=== PATIENT | male | born 1955 | race Caucasian/White ===

== ENCOUNTER 2018-01-23 13:54 | Emergency (ER) | payer BC, SELFPAY ==
[2018-01-23 14:20] VITALS: BP 210/97; PULSE 68; RESP 16; TEMP 36.6; O2SAT 97
--- NOTE | 2018-01-23 14:40 | DI.REPORT_ITS ---
SYMPTOMS/DIAGNOSIS: POSTERIOR THIGH PAIN AFTER TRAUMA AND IMMOBILIZATION RIGHT LOWER EXTREMITY ULTRASOUND: The femoral and popliteal veins as well as calf veins are freely compressible. No thrombus is visible. The doppler venous wave form augments normally. IMPRESSION: Negative right lower extremity ultrasound. No evidence of DVT.
--- NOTE | 2018-01-23 14:48 | ED.GENADUL_ITS ---
Disposition Clinical Impression: Muscle spasm, Sciatica Disposition: HOME Condition: Fair Instructions: Sciatica (ED), Muscle Spasm (ED) Additional Instructions: Heat or ice to affected areas. Encourage rest, ice, elevation of the right knee. Tylenol and/or ibuprofen as needed for discomfort. Ultrasound was normal today, no evidence of blood clot. You may try topical patches such as Salonpas or Lidoderm patches over right sacroiliac joint to help with discomfort. Gentle stretching and frequent ambulation as discussed. If you develop weakness in your lower extremities, fevers/chills, change in sensation, change in bowel or bladder habits or other new/worsening symptoms please seek care urgently once again. Continue to monitor your blood pressure at home, discuss this further with primary care. Referrals: Primary Care Provider [Outside] Medical Decision Making - Medical Decision Making Patient presents with chief complaint of RLE pain. Pain is primarily posterior running down length of RLE. Worse with ambulation. Patient has long standing right knee pain. He had injry to RLE and knee a few days ago while hiking. Pain in knee has since resolved. Knee exam is normal. Full ROM, no effusion. No ligamentous laxity. No joint line tenderness. Calf is soft, no tenderness with palpation. Pain is elicited with palpation over posterior thigh but this seems minimal. No swelling, deformity or tension. 2+ distal pulses. Sensation intact. Patient ambulating well. No saddle paresthesias. He is concerned for DVT. PE is reassuring, not suggestive of DVT. However, given his srecent trauma followed by few days of being sedentary, I am concerned that this remains a risk. Will obtain US to evaluate. Efraín has palpable muscle spasm near right SI joing. HE has discomfort wiht this. Reports he has had radiating pain before but that it has been several years, most likely diagnosis is consistent with sciatica. Declines analgesics as this franky. We were contacted by radiolgoist who advises that no acute thrombus is visualized. Discussed findings with patient. We discussed that PE findings and history is most consistent with sciatica. Given stretching techniques. Encouraged frequent ambulation. Discussed topical options to help with discomfort as well as antiinflammatories. Advised f/u with PCP. Encouraged hydration. Discussed massage techniques. Discussed new/worsening symptoms and when to seek care urgently once again. All of his questions and concerns were addressed, he is in agreement with this plan. History of Present Illness - General Chief complaint: Orthopedic Stated complaint: KNEE PAIN Time Seen by Provider: 01/23/18 14:17 Source: patient, RN notes reviewed Mode of arrival: ambulatory Limitations: no limitations - History of Present Illness Initial comments: Patient is 62-year-old male presenting today with chief complaint right lower extremity pain. Patient reports that he has had long-standing discomfort in the right knee. Reports that he is status post arthroscopy. He reports is been several years since surgery that is continued to have some discomfort particularly in the lateral aspect. States that 4 days ago, while hiking, he missed stepped and twisted his right knee. He still reports that he subsequently fell. Reports that initially he was having pain primarily in the knee. He has been resting, icing, elevating. States that yesterday the pain had nearly completely subsided. Reports that this morning he again felt quite well. However, after ambulating at the grocery store he reports that the pain reoccurred. Pain is now primarily along the posterior aspect of the thigh and calf. Is endorsing some tingling along the lateral aspect of the foot. States that he has had pain like this historically that is been several years since last episode of discomfort such as this. He denies any fevers or chills. Denies other injury the time the incident. Does report that he also has chronic discomfort in the back which can radiate down the posterior aspect of the leg but again, it has been several years since flared up. - Related Data Unknown [No Known Home Meds] 01/23/18 Allergies Allergy/AdvReac Type Severity Reaction Status Date / Time No Known Allergies Allergy Unverified 01/23/18 14:24 Review of Systems Constitutional: no symptoms reported. denies: chills, fever Respiratory: no symptoms reported. denies: cough, shortness of breath Cardiovascular: denies: chest pain, palpitations Musculoskeletal: as per HPI Skin: denies: rash, lesions, change in color Neurological: as per HPI. denies: abnormal gait Past Medical History - Past Medical History Medical history: no medical history Surgical history: no surgical history General Exam - General Limitations: no limitations General appearance: alert, in no apparent distress - Eye Eye exam: Present: normal apperance - Respiratory Respiratory exam: Present: normal lung sounds bilaterally. Absent: respiratory distress - Cardiovascular Cardiovascular Exam: Present: regular rate, normal rhythm, normal heart sounds - Rectal Rectal exam: Present: deferred - Extremities Exam Extremities exam: Present: normal inspection (Exam the patient's right lower extremity is significant for limited range of motion of the right knee. He is able to flex to approximately 60 . Patient reports that this is baseline for him that he has had limited flexion for quite some time. No effusion is palpable. No discoloration of the skin. Calf is soft and nontender. He is expressing discomfort with palpation of the posterior thigh. No swelling or discoloration noted in this area. He has 2+ distal pulses. Ligamentously intact knee with no varus or valgus laxity. Nicholas exam normal. No joint line tenderness.), tenderness, normal capillary refill. Absent: full ROM, pedal edema, joint swelling, calf tenderness - Back Exam Back exam: Present: tenderness, muscle spasm (Palpable muscle spasm. The right SI joint). Absent: normal inspection - Neurological Exam Neurological exam: Present: alert, normal gait. Absent: motor sensory deficit ( No saddle paresthesias) - Psychiatric Psychiatric exam: Present: normal affect, normal mood - Skin Skin exam: Present: warm, dry, intact, normal color Course Vital Signs - 24 hr 01/23/18 14:20 Temperature 36.6 C Pulse 68 Respiratory 16 Rate Blood Pressure 210/97 Pulse Oximetry 97
[2018-01-23 16:00] VITALS: BP 182/108; PULSE 71; RESP 16; TEMP 36.6; O2SAT 97
== END 2018-01-23 16:02 | disposition home or self-care (01) ==
PROVIDERS: Emergency Provider Student in an Organized Health Care Education/Training Program
DX: M62.838 Other muscle spasm (principal); M54.31 Sciatica, right side
CPT/HCPCS: 99284; 93971; 99282

== ENCOUNTER 2024-12-03 18:08 | Outpatient (REF) | payer MEDICARE, SELFPAY ==
[2024-12-03 20:56] LABS: Abs Immature Grans 0.02 10^3/uL (0.0-0.06); Absolute Basophil Count 0.06 10^3/uL (0.0-0.2); Absolute Eosinophil Count 0.14 10^3/uL (0.0-0.7); Absolute Monocyte Count 0.45 10^3/uL (0.1-0.8); Absolute Neutrophil Count 3.98 10^3/uL (1.2-6.7); Basophils % 0.9 %; Eosinophils % 2.1 %; HCT 51.3 % (40.0-50.0); Immature Grans % 0.3 %; MCH 29.7 pg (27.0-33.0); MCHC 33.1 % (32.0-36.0); MCV 90 fL (80-95); MPV 11.7 fL (8.0-11.0); Monocytes % 6.9 %; Neutrophils % 60.8 %; Platelet Count 291 10^3/uL (130-400); RBC 5.73 10^6/uL (4.36-5.78); RDW 13.2 % (11.8-14.1); RDW-SD 43.2 fL; WBC 6.55 10^3/uL (4.4-10.8)
[2024-12-03 21:09] LABS: ALT 44 U/L (16-63); AST 16 U/L (15-37); Albumin 4.3 g/dL (3.4-5.0); Alkaline Phosphatase 89 U/L (46-116); Anion Gap 7.6 mmol/L (3-11); BUN 14 mg/dL (7-18); Bilirubin, Total 0.6 mg/dL (0.2-1.0); CO2 29.4 mmol/L (21.0-32.0); CREATININE 1.1 mg/dL (0.70-1.30); Calcium 9.9 mg/dL (8.5-10.1); Chloride 102 mmol/L (98-107); Estimated GFR 72.67 (mL/min/1.73m2); Glucose 169 mg/dL (74-106); LDL CHOLESTEROL 168 mg/dL (<100); Potassium 4.8 mmol/L (3.5-5.1); Sodium 139 mmol/L (136-145); Total Protein 7.6 g/dL (6.4-8.2)
[2024-12-03 21:19] LABS: Hemoglobin A1C 9.2 % (<5.7)
[2024-12-03 21:38] LABS: COMMENT (LAB VIEW ONLY) 235.09 mg/dL
== END 2024-12-03 18:09 | disposition home or self-care (01) ==
LOC: NCHCN 18:08
PROVIDERS: Visit Provider Family Medicine
DX: E11.9 Type 2 diabetes mellitus without complications (principal); E78.5 Hyperlipidemia, unspecified; I10 Essential (primary) hypertension
CPT/HCPCS: 80053; 83721; 82043; 82570; 83036; 85025

== ENCOUNTER → 2025-02-13 08:52 | Outpatient (BNVA) | payer MEDICARE, SELFPAY | PROVIDERS: PCP Family Medicine; Visit Provider Physical Therapy Assistant | DX: Z12.11 Encounter for screening for malignant neoplasm of colon (principal); I10 Essential (primary) hypertension | CPT/HCPCS: S0285 ==

== ENCOUNTER 2025-02-28 09:37 | Day surgery (SDC) | payer MEDICARE, OTHER, SELFPAY ==
[2025-02-28 10:11] VITALS: BP 131/91; PULSE 84; RESP 16; TEMP 36.3; O2SAT 93
[2025-02-28] MEDS: Lactated Ringers 1,000 ML 80 ML IV (10:27)
--- NOTE | 2025-02-28 10:49 | W.ANESPRE ---
General Info Date of Service Date Performed: 02/28/25 Height: 5 ft 6 in Weight: 86.5 kg Body Mass Index (BMI): 30.7 Surgical Procedure: Operation Date: 02/28/25 12:05 Proposed Procedure Side Surgeon shirley Stewart MD Meds Allergies and Home Medications Allergies Allergy/AdvReac Type Severity Reaction Status Date / Time No Known Allergies Allergy Verified 02/28/25 10:07 Home Medication ?Medication ?Instructions ?Recorded aspirin 81 mg tablet 81 mg PO DAILY 02/13/25 bisacodyl 5 mg tablet,delayed 5 mg PO ONCE #4 tabs 02/13/25 release (Dulcolax (bisacodyl)) lisinopril 30 mg tablet 30 mg PO DAILY 02/13/25 metformin 500 mg tablet 500 mg PO BID 02/13/25 polyethylene glycol 3350 17 17 g PO ONCE #238 grams 02/13/25 gram/dose oral powder simvastatin 20 mg tablet 40 mg PO DAILY 02/13/25 L.acidophil,salivari-Bifido 1 cap PO DAILY 02/28/25 bifidum-Strep thermoph 175 mg capsule (Acidophilus Probiotic Blend) multivitamin 1 tab PO DAILY 02/28/25 Current Visit Medications: Current Medications Generic Name Dose Route Start Last Admin Trade Name Freq PRN Reason Stop Dose Admin Ringer's Solution 1,000 mls @ 80 mls/hr 02/28/25 06:00 02/28/25 10:27 IV 02/28/25 23:59 80 mls/hr INFUSION MICHAEL Administration IV Miscellaneous Supplies 1 each 02/28/25 06:00 Iv Access IV 02/28/25 23:59 DIRECTED MICHAEL Sodium Biphosphate/Sodium Phosphate 133 - 266 ml 02/28/25 06:00 Na Phosphate Enema-Adult 133 Ml Btl NC 02/28/25 23:59 PRN PRN Sodium Chloride 0 ml 02/28/25 06:00 Normal Saline Flush 10 Ml Syr IV 02/28/25 23:59 PRN PRN Sodium Chloride 0 ml 02/28/25 06:00 Normal Saline 10 Ml Vial IJ 02/28/25 23:59 DIRECTED PRN Sterile Water 0 ml 02/28/25 06:00 Water,Injection,Sterile 10 Ml Vial IJ 02/28/25 23:59 DIRECTED PRN [facility] Medical History Medical History (Updated 02/28/25 @ 10:53 by Lashaun Stewart MD) Diverticulosis of colon Pain in left hip Ureteric stone Steatosis, liver Hyperlipidemia Essential hypertension Diabetes mellitus, type II Surgical History Surgical History H/O hemorrhoidectomy S/P ureteral stent placement Tobacco Smoking/Tobacco Use Status: Never Passive smoking exposure: No Alcohol Alcohol Intake: current Alcohol intake frequency: a few times a month Substance Use Substance use: Never Substance use type: does not use Vital Signs and Lab Results Vital Signs Most Recent Vital Signs in EMR: Most Recent Vital Signs Temp Pulse Resp BP Pulse Ox 36.3 C L 84 16 131/91 H 93 02/28/25 10:11 02/28/25 10:11 02/28/25 10:11 02/28/25 10:11 02/28/25 10:11 Point of Care Results Point of Care Results: Finger Stick Blood Glucose 156 02/28/25 10:19 Anesthesia Assessment and Plan Anesthesia History Personal History: No History of Anesthesia Complications Family History: No Family History of Anesthesia Complications Exercise Tolerance Exercise Tolerance: Metabolic Equivalents>4 Pertinent Negatives Pertinent Negatives: No Symptoms of GERD Cardiac & Pulmonary Exam Cardiac Exam: Normal S1/S2 Heart Sounds Pulmonary Exam: Clear Bilateral Breath Sounds Implantable Cardiac Device Does patient have a Pacemaker or an ICD?: No Airway Exam Known Difficult Airway: No Mallampati Class: 2 Mouth Opening: Normal (> 3cm) Thyromental Distance: Less than 3 cm Neck Range of Motion: Full ROM Neck Circumference: Normal Teeth Condition: Normal Dentition ASA Classification ASA Score: ASA 2 Emergency Case?: No NPO Status NPO Status: NPO Clears >2 hours, Solids >8 hours Anesthesia Plan Resuscitation Status: Full Code Anesthesia Technique: General Anesthesia Airway Planned: Natural Airway Pain Management: Surgeon and patient request nerve block Monitors Used: Standard Monitors
--- NOTE | 2025-02-28 10:52 | W.PM.DSUDISC ---
Date of service: 02/28/25 Discharge Plan Disposition Patient Disposition: Home Condition: Stable Discharge Details Attending Provider: Lashaun Stewart Primary Care Provider: Cuba Gutierrez Recommendations for Follow Up Recommended tests to be ordered by follow up provider: Normal colonoscopy. Next screening colonoscopy will be due in 10 years. Home Meds and New Rx's Prescriptions: Continued lisinopril 30 mg tablet 30 mg PO DAILY simvastatin 20 mg tablet 40 mg PO DAILY metformin 500 mg tablet 500 mg PO BID aspirin 81 mg tablet 81 mg PO DAILY multivitamin Tablet 1 tab PO DAILY L.acidoph,saliva-B.bif-S.therm [Acidophilus Probiotic Blend] 175 mg capsule 1 cap PO DAILY Discontinued bisacodyl [Dulcolax (bisacodyl)] 5 mg tablet,delayed release (DR/EC) 5 mg PO ONCE Qty: 4 0RF Rx Instructions: Take per colonoscopy instructions provided by ordering providers office polyethylene glycol 3350 17 gram/dose powder 17 g PO ONCE Qty: 238 0RF Rx Instructions: Take per colonoscopy instructions provided by ordering providers office Discharge Instructions Additional Instructions: Colonoscopy today was normal! Zero polyps. Next screening colonoscopy will be due in 10 years. Diverticulosis of the sigmoid colon noted, no diverticulitis (infection) present. Take a daily fiber supplement and eat a high fiber diet to prevent problems and progression of diverticulosis. Stand Alone Forms: Anesthesia Discharge Inst., Colonoscopy Post Instructions, Giuliana Montanez ([facility]) Activity:: Activity as Tolerated Diet:: As Tolerated Discharge Orders Discharge Orders: Discharge Order (Routine); Ordered 02/28/25 Ordered By: Lashaun Stewart DS: Diagnosis Discharge Diagnosis (1) Screening for colorectal cancer: Status: Acute
[2025-02-28 10:53] VITALS: BMI 30.7
--- NOTE | 2025-02-28 10:54 | W.COLOREPORT ---
Date of service: 02/28/25 Time of Service: 12:10 Colonoscopy Report Date of procedure: 02/28/25 Pre-op diagnosis general: Screening for colorectal cancer Post-op diagnosis procedure note: same Procedure: Colonoscopy Surgeon: Lashaun Stewart Anesthesia Type: General:No Airway Estimated blood loss (mL): 0 Pathology: none sent Complications: None Indications: screening for colorectal cancer Prep: Miralax/Dulcolax Procedure Description: Informed consent was obtained and the patient was taken to the procedure area. The patient was placed in left lateral decubitus position on the procedure table. Timeout was performed. Anesthesia was induced. A lubricated colonoscope was inserted through the anus and passed to the cecum. The cecum was identified by the ileocecal valve and the appendiceal orifice. The scope was then slowly withdrawn and the colonic and rectal mucosa examined. There are no colon or rectal mass lesions, polyps, AVMs. There is no inflammatory change. Moderate sigmoid diverticulosis was seen. The scope was retroflexed in the anorectal junction examined. Uncomplicated internal hemorrhoids present. Assessment and plan: Normal colonoscopy. Next screening colonoscopy will be due in 10 years.
[2025-02-28 11:58] VITALS: BP 109/80; PULSE 77; RESP 16; TEMP 36.3; O2SAT 100
[2025-02-28 12:28] VITALS: BP 123/96; PULSE 68; RESP 16; TEMP 36.2; O2SAT 96
--- NOTE | 2025-02-28 12:29 | W.ANESPOSTOP ---
Postoperative Evaluation Date, Time and Location Date Performed: 02/28/25 Time Performed: 12:08 Patient Location: Day Surgery Unit Vital Signs Most Recent Imported Vital Signs: Most Recent Vital Signs Temp Pulse Resp BP Pulse Ox 36.3 C L 77 16 109/80 100 02/28/25 11:58 02/28/25 11:58 02/28/25 11:58 02/28/25 11:58 02/28/25 11:58 Pain Score Most Recent Pain Score: Most Recent Pain Score Pain Level 0 02/28/25 10:11 Assessment Mental Status: Awake (Alert & Oriented to Patient Baseline) Airway and Respiratory Function: Patent airway with normal (patient baseline) respiratory exam Cardiovascular Function: Hemodynamically Stable Hydration Status: Adequately Hydrated Nausea & Vomiting: No Nausea or Vomiting Pain: Pt. Denies Any Pain Peripheral Nerve Block: Patient did not receive a nerve block
== END 2025-02-28 12:44 | disposition home or self-care (01) ==
LOC: SUR 09:38
PROVIDERS: PCP Family Medicine; Visit Provider Surgery
PROC: 0DJD8ZZ Inspection of Lower Intestinal Tract, Via Natural or Artificial Opening Endoscopic (ICD-10-PCS; CPT 45378; principal; 2025-02-28 12:00)
DX: Z12.11 Encounter for screening for malignant neoplasm of colon (principal); E11.9 Type 2 diabetes mellitus without complications; I10 Essential (primary) hypertension; K57.30 Diverticulosis of large intestine without perforation or abscess without bleeding
CPT/HCPCS: G0121; J2704

== ENCOUNTER 2025-04-11 04:27 | Emergency (ER) | payer MEDICARE, OTHER, SELFPAY ==
[2025-04-11 04:30] VITALS: BP 190/95; PULSE 80; RESP 18; TEMP 36.4; O2SAT 96
--- NOTE | 2025-04-11 04:36 | ED.GENADUL_ITS ---
Discharge Plan Disposition Patient Disposition: Home Condition: Good Discharge Details Clinical Impression: Lateral pain of left hip Primary Care Provider: Cuba Gutierrez ED Provider: Khari Butler Home Meds and New Rx's Prescriptions: New lidocaine 5 % adhesive patch,medicated 1 patch topical DAILY Qty: 15 0RF Rx Instructions: leave on most painful area for up to 12 hrs ibuprofen 600 mg tablet 600 mg PO TID PRN (Reason: pain) Qty: 15 0RF Continued lisinopril 30 mg tablet 30 mg PO DAILY simvastatin 20 mg tablet 40 mg PO DAILY metformin 500 mg tablet 1,000 mg PO BID aspirin 81 mg tablet 81 mg PO DAILY multivitamin Tablet 1 tab PO DAILY L.acidoph,saliva-B.bif-S.therm [Acidophilus Probiotic Blend] 175 mg capsule 1 cap PO DAILY Discharge Instructions Instructions: Leg Pain (ED) Additional Instructions: You were seen for left buttock/lateral hip pain that seems muscular in nature. X-rays show significant arthritis but no fracture. Prescriptions for lidocaine patches and ibuprofen have been sent to pharmacy. Follow up with PCP next week. Return to ED for severe worsening pain, fever, numbness or weakness, other concerns. Stand Alone Forms: Portal Information Referrals: Cuba Gutierrez MD [Primary Care Provider, Medicine] HPI General Mode of arrival: wheelchair . Date/Time Provider Initiated Documentation: 04/11/25 04:29 . Limitations to Documentation: no limitations . Information obtained by: patient and RN notes reviewed . HPI Narrative: Patient presents to ED with left buttock and hip pain that began on Tuesday after doing some lifting and moving. Denies any fall or direct trauma. Pain has become increasingly worse to the point where it is difficult to ambulate. He has tried Tylenol, Alever, cold compresses. It doesn't feel to bad if he is sitting but standing and walking bothers a lot. Pain is in buttock and radiates around to the side and down the thigh. No neuro changes. No back pain. Related Data Home Medications Medication Instructions Recorded Confirmed aspirin 81 mg tablet 81 mg PO DAILY 02/13/2511/28 lisinopril 30 mg tablet 30 mg PO DAILY 02/13/2511/28 metformin 500 mg tablet 1,000 mg PO BID 02/13/2511/28 simvastatin 20 mg tablet 40 mg PO DAILY 02/13/2511/28 L.acidophil,salivari-Bifido 1 cap PO DAILY 02/28/25 bifidum-Strep thermoph 175 mg capsule (Acidophilus Probiotic Blend) multivitamin 1 tab PO DAILY 02/28/2511/28 ibuprofen 600 mg tablet 600 mg PO TID PRN pain #15 t abs 04/11/25 lidocaine 5 % topical patch 1 patch topical DAILY #15 ea 04/11/25 Previous Rx's Medication Instructions Recorded ibuprofen 600 mg tablet 600 mg PO TID PRN pain #15 t abs 04/11/25 lidocaine 5 % topical patch 1 patch topical DAILY #15 ea 04/11/25 Allergies Allergy/AdvReac Type Severity Reaction Status Date / Time No Known Allergies Allergy Verified 04/11/25 04:33 General Stated Complaint: Orthopedic SATISH: 3 Exam Narrative Exam Narrative: Const: WDWN elderly male in NAD. VS per triage. HEENT: NC/AT. Normal facial exam. Neck: Supple. Trachea midline. Lungs: Normal respiratory effort. Cor: Good DP pulses. Back: No LS tenderness. Neuro: A+O x 3. Normal speech, mentation. Cranial nerves II - XII grossly intact. No gross motor or sensory deficit. Ext: No C/C/E. Able to abduct and adduct at the hip without much problem. Tender in the left lower buttock and around the greater troch. NVI distal. Course Vital Signs Vital signs: Vital Signs Temperature 97.5 F L 04/11/25 04:30 Pulse 80 04/11/25 04:30 Respiratory Rate 18 04/11/25 04:30 Blood Pressure 190/95 H 04/11/25 04:30 Pulse Oximetry 96 04/11/25 04:30 Temperature 97.5 F L 04/11/25 04:30 Pulse 80 04/11/25 04:30 Respiratory Rate 18 04/11/25 04:30 Blood Pressure 190/95 H 04/11/25 04:30 Pulse Oximetry 96 04/11/25 04:30 Oxygen Delivery Method Room Air 04/11/25 04:30 Oxygen Flow Rate 0 04/11/25 04:30 Pain Level 3 04/11/25 04:30 Medical Decision Making Patient presenting with hip pain that has worsened over three days after lifting and moving items. Likely muscular in nature given that history. No back pain or neuro symptoms. Most painful when trying to bear weight. Will place lidocaine patch and give IM ketorolac. Obtain left hip film. Left x-ray per my read with no acute fracture or dislocation. He has significant degenerative change of the left hip. He does report pretty sig nificant improvement with lidocaine patch and IM ketorolac. Will provide prescriptions for lidocaine patches and ibuprofen. Follow-up with primary care next week. Return precautions provided. Imaging Data Radiologic Study: Attestation: I personally reviewed and interpreted this imaging study as follows: Imaging: X-Ray My impression: see [facility] All Active Problems (Updated 04/11/25 @ 05:43 by Khari Butler MD) Lateral pain of left hip (Acute) Medical History Diverticulosis of colon Pain in left hip Ureteric stone Steatosis, liver Hyperlipidemia Essential hypertension Diabetes mellitus, type II Surgical History History of colonoscopy (~02/28/25) H/O hemorrhoidectomy S/P ureteral stent placement Social History Smoking/Tobacco Use Status: Never Smoking risk assessment performed?: Yes Alcohol Intake: current Alcohol Intake frequency: a few times a month Drug use: Never Substance use type: does not use Housing: house Do you feel safe at home: Yes Do you feel safe in your relationship?: Yes
[2025-04-11] MEDS: Ketorolac 15 MG/ML VIAL IM (04:51)
[2025-04-11] MEDS: Lidocaine 5% Patch 1 PATCH TP (04:53)
--- NOTE | 2025-04-11 05:10 | DI.RAD_ITS ---
Exam(s) XR HIP LT COMPLETE AP PELVIS EXAM: XR HIP LT COMPLETE AP PELVIS CLINICAL HISTORY: pain/difficulty ambulating. TECHNIQUE: 2D digital imaging was performed of the left hip. Two views were obtained. AP pelvis and lateral left hip views were obtained. COMPARISON: No exams were available for comparison FINDINGS: BONES: No acute fracture is present. No bony destructive lesion is seen. JOINTS: No dislocation present. There are marked degenerative changes of the left hip with near complete loss of the superior joint space. Osteophytes are seen both at the acetabulum and the femoral head. There are more mild degenerative changes seen in the right hip. SOFT TISSUE: Normal. IMPRESSION: 1. There is no acute fracture or dislocation. 2. Marked osteoarthritis of the left hip. 3. The preliminary [facility] report was reviewed. DATA REPOSITORY: RADIATION DOSE DELIVERED:
[2025-04-11] MEDS: Methocarbamol 750 MG TAB PO (06:17)
--- NOTE | 2025-04-11 06:22 | DI.[facility]_ITS ---
PROCEDURE INFORMATION: Exam: XR Left Hip Exam date and time: 04/11/2025 4:58 AM Age: 70 years old Clinical indication: Hip pain; Left hip; Pain/difficulty ambulating TECHNIQUE: Imaging protocol: Radiologic exam of the left hip. Views: 2 or 3 views hip with pelvis when performed. COMPARISON: No relevant prior studies available. FINDINGS: Bones/joints: No acute fracture. No dislocation. Severe degenerative changes in the left hip with joint space narrowing, [id number] articulation, subchondral sclerosis and osteophyte formation. Moderate osteoarthritic changes are seen right hip. Soft tissues: Unremarkable. IMPRESSION: Severe left hip osteoarthritis. Dictated and Authenticated by: Marilee Marcial MD. Orderin Luke Lucia MD
== END 2025-04-11 08:36 | disposition home or self-care (01) ==
PROVIDERS: Emergency Provider Emergency Medicine; PCP Family Medicine
DX: M25.552 Pain in left hip (principal)
CPT/HCPCS: 99284 ×2; 96372; 73502; J1885

== ENCOUNTER → 2025-05-13 00:44 | Outpatient (CLI) | payer MEDICARE, OTHER, SELFPAY ==
--- NOTE | 2025-05-13 | DI.MRI_ITS ---
Exam(s) MR LUMBAR SPINE WO EXAM: MR LUMBAR SPINE WO CLINICAL HISTORY: ACUTE LT SIDED LOW BACK PAIN W/ SCIATICA M54.42 LUMBAGO LEFT SIDE. TECHNIQUE: Multiplanar multisequence MRI of the Lumbar spine was performed. COMPARISON: CR,XR XR HIP LT COMPLETE AP PELVIS from 04/11/2025 FINDINGS: Bones: The last intervertebral disc space is designated the L5/S1 level for the numbering purpose of this examination. The vertebral body heights are well maintained. Alignment: Unremarkable. The marrow signal characteristics are unremarkable. Cord: The conus tip ends at the L1 level. It is of normal size and signal intensity. T12-L1: The disc height is maintained. No focal disc herniation is present. No central spinal canal stenosis.No neural foraminal stenosis. L1-2:The disc height is maintained. No focal disc herniation is present. No central spinal canal stenosis.No neural foraminal stenosis. L2-3: The disc height is maintained. No focal disc herniation is present. There are facet degenerative changes. No central spinal canal stenosis.No neural foraminal stenosis. L3-4: Disc height is maintained. There are small endplate osteophytes projecting posteriorly and mild disc bulging. There facet degenerative changes. No focal disc herniation is present. There is mild central canal stenosis [id number] bilateral neural foraminal stenosis. L4-5:The disc height is maintained. There are small endplate osteophytes projecting posteriorly. There is mild disc bulging. No focal disc herniation is present. There prominent facet degenerative changes. Ligamentous hypertrophy is also present. Moderate to severe central canal stenosis. Mild r ight and moderate to severe left neural foraminal stenosis. L5-S1: Moderate to severe loss of disc height. Endplate osteophytes.No focal disc herniation is present. There are mild facet degenerative changes no central spinal canal stenosis.Moderate to severe bilateral neural foraminal stenosis. The visualized SI joints and sacrum are unremarkable. Soft tissues: The paraspinal soft tissues are unremarkable. IMPRESSION: Degenerative disc changes and facet degenerative changes cause moderate to severe central canal stenosis and neural foraminal narrowing at L4-5. There is moderate to severe bilateral neural foraminal narrowing at L5-S1. There is mild central canal stenosis at L3-4. DATA REPOSITORY:
== END ==
LOC: DI 00:45
PROVIDERS: PCP Family Medicine; Visit Provider Family Medicine
DX: M48.062 Spinal stenosis, lumbar region with neurogenic claudication (principal); M48.02 Spinal stenosis, cervical region
CPT/HCPCS: 72148

== ENCOUNTER → 2025-05-27 08:11 | Outpatient (BNVA) | payer MEDICARE, OTHER, SELFPAY | PROVIDERS: PCP Family Medicine; Referring Provider Family Medicine; Visit Provider Physician Assistant | DX: M16.12 Unilateral primary osteoarthritis, left hip (principal); M48.061 Spinal stenosis, lumbar region without neurogenic claudication | CPT/HCPCS: 99213 ==